=== PATIENT | male | born 1995 | race Caucasian/White ===

== ENCOUNTER → 2022-02-25 | Outpatient (CLI) | payer OTHER ==
--- NOTE | 2022-02-25 17:00 | KCIC ---
Exam Date: 02/25/2022 1:25 PM MRI LEFT LOWER EXTREMITY JOINT WITHOUT Indication: Reason: LEFT PERONEAL TENDINOSIS/LEFT ANKLE INSTABILITY / Spl. Instructions: / History: Pt fell off of a ladder April 2021. Both lateral and medial pain.. TECHNIQUE: Multiplanar MR images of the ankle without intravenous contrast. COMPARISON: Radiographs from February 09, 2022 and May 13, 2021 FINDINGS: The anterior and posterior talofibular ligaments are intact. The anterior and posterior tibiofibular ligaments are intact. The calcaneofibular ligament is intact. The deep fibers of the deltoid ligament appears indistinct and demonstrate abnormal signal consistent with a moderate sprain or partial tear. There is prominent marrow edema involving the medial malleo ganesh consistent with bone contusion. No definite fracture line or fracture fragments identified. The superficial fibers of the deltoid ligament are intact. The spring ligamentous intact. Lisfranc ligament is intact. The posterior tibial tendon, flexor digitorum longus tendon, and flexor hallucis longus tendon are in tact and within normal limits. The peroneal tendons are intact. Visualized extensor tendons are int act. Achilles tendon is intact and within normal limits. Remainder of the visualized marrow demonstrates normal signal on all sequences, except for mild scatt ered degenerative signal. The tarsal tunnel, sinus tarsi and plantar fascia are within normal limits. IMPRESSION: Moderate sprain or partial tear involving the deep fibers of the deltoid ligament. Lack of significa nt Marrow edema involving the medial malleolus is consistent with bone contusion. Lack of significan t overlying soft tissue swelling suggests this may be subacute or chronic. No definite fracture line or fracture fragments are identified. The superficial fibers of the deltoid ligament are intact. Electronically signed by: Arun Painter MD (02/25/2022 4:57 PM) [id number]
== END ==
LOC: KCIC MRI 12:50
PROVIDERS: ATTEND Podiatrist
DX: S93.422A Sprain of deltoid ligament of left ankle, initial encounter (principal); M76.72 Peroneal tendinitis, left leg; M25.372 Other instability, left ankle; M25.572 Pain in left ankle and joints of left foot; W11.XXXA Fall on and from ladder, initial encounter; Y93.89 Activity, other specified; Y92.89 Other specified places as the place of occurrence of the external cause; Y99.8 Other external cause status
CPT/HCPCS: 73721